=== PATIENT | female | born 1985 | race Caucasian/White ===

== ENCOUNTER → 2017-03-21 | Outpatient (CLI) | payer OTHER ==
--- NOTE | 2017-03-21 16:32 | KCIC ---
Bilateral 3 view hand HISTORY: Polyarthralgia. Bilateral hand pain worse on the right. FINDINGS: No acute fracture or bone destruction. Joints and soft tissues appear intact. Conclusion: No acute radiographic abnormality in either hand Electronically signed by: Chu Alfaro MD (03/21/2017 4:28 PM) [facility]
== END | disposition home or self-care (01) ==
LOC: KCIC 14:48
PROVIDERS: ATTEND Internal Medicine Rheumatology
DX: M79.641 Pain in right hand (principal); M79.642 Pain in left hand
CPT/HCPCS: 73130